=== PATIENT | male | born 1985 | race American Indian/Alaskan Native ===

== ENCOUNTER 2017-08-24 19:21 | Emergency (ER) | payer SELFPAY ==
[2017-08-24] MEDS ORDERED: MOTRIN PO ONE (23:18)
[2017-08-24] MEDS ORDERED: MOTRIN ONE (23:21)
--- NOTE | 2017-08-25 00:01 | XRay Report ---
FINAL REPORT EXAM: XR SPINE LUMBOSACRAL 2-3V HISTORY: fall, c/o midline lumbar pain COMPARISON: None available. FINDINGS: Three views of the lumbar spine obtained. Lumbar vertebral body heights and disc heights are preserved. Pedicles are intact. No spondylolisthesis. IMPRESSION: Normal height and alignment of the lumbar spine.
--- NOTE | 2017-08-25 02:00 | Emergency Department Report ---
ED Back Pain/Injury HPI - General Chief Complaint: Fall Stated Complaint: BACK PAIN Time Seen by Provider: 08/25/17 01:46 Source: patient Limitations: No Limitations - History of Present Illness Initial Comments: 31-year-old male past medical history obesity presents with complaint of over one week of lower back pain status post fall. Patient states he fell while in the shower. Denies any loss of consciousness denies blurred vision denies headache denies nausea denies vomiting denies chest pain or abdominal pain. Primary complaining of lower back pain. Patient is ambulatory without assistance. States he was taking some [id number] Motrin with minimal relief of his pain. Patient denies any saddle paresthesias bladder or bowel incontinence. Denies radiation of pain into his legs. MD Complaint: back pain Onset/Timin -: week(s) Place: home Radiation: none Severity: moderate Severity scale (0 -10): 5 Quality: aching Consistency: constant Improves With: none Worsens With: none Associated Symptoms: denies other symptoms - Related Data Previous Rx's Medication Instructions Recorded Last Taken Type Naproxen 500 mg PO BID PRN #30 tablet 08/25/17 Unknown Rx traMADol [Ultram 50 MG tab] 50 mg PO Q6HR PRN #9 tablet 08/25/17 Unknown Rx Allergies Allergy/AdvReac Type Severity Reaction Status Date / Time Penicillins Allergy Unknown Verified 08/24/17 21:08 ED Review of Systems ROS: Stated complaint: BACK PAIN Other details as noted in HPI Constitutional: denies: chills, fever Eyes: denies: eye pain, eye discharge, vision change ENT: denies: ear pain, throat pain Respiratory: denies: cough, shortness of breath, wheezing Cardiovascular: denies: chest pain, palpitations Endocrine: no symptoms reported Gastrointestinal: denies: abdominal pain, nausea, diarrhea Genitourinary: denies: urgency, dysuria Musculoskeletal: back pain. denies: joint swelling, arthralgia Skin: denies: rash, lesions Neurological: denies: headache, weakness, paresthesias Psychiatric: denies: anxiety, depression Hematological/Lymphatic: denies: easy bleeding, easy bruising ED Past Medical Hx - Past Medical History Hx Asthma: Yes - Surgical History Past Surgical History?: No - Social History Smoking Status: Never Smoker Substance Use Type: Alcohol - Medications Home Medications: Home Medications Medication Instructions Recorded Confirmed Last Taken Type Naproxen 500 mg PO BID PRN #30 tablet 08/25/17 Unknown Rx traMADol [Ultram 50 MG tab] 50 mg PO Q6HR PRN #9 tablet 08/25/17 Unknown Rx ED Physical Exam - General Limitations: No Limitations General appearance: alert, in no apparent distress - Head Head exam: Present: atraumatic, normocephalic - Eye Eye exam: Present: normal appearance, PERRL, EOMI - ENT ENT exam: Present: mucous membranes moist - Neck Neck exam: Present: normal inspection - Respiratory Respiratory exam: Present: normal lung sounds bilaterally. Absent: respiratory distress - Cardiovascular Cardiovascular Exam: Present: regular rate, normal rhythm. Absent: systolic murmur, diastolic murmur, rubs, gallop - GI/Abdominal GI/Abdominal exam: Present: soft, normal bowel sounds - Rectal Rectal exam: Present: deferred - Extremities Exam Extremities exam: Present: normal inspection - Back Exam Back exam: Present: normal inspection, paraspinal tenderness (some lumbar paraspinal tenderness. No cervical thoracic or lumbar midline tenderness.) - Neurological Exam Neurological exam: Present: alert, oriented X3, CN II-XII intact, normal gait - Expanded Neurological Exam Expanded Patient oriented to: Present: person, place, time Cranial nerves: EOM's Intact: Normal, Facial Sensation: Normal Cerebellar function: Finger to Nose: Normal, Heel to [place]: Normal, [place]: Normal Sensory exam: Upper Extremity Light Touch: Normal, Lower Extremity Light Touch: Normal Motor strength exam: RUE: 5, LUE: 5, RLE: 5, LLE: 5 DTR: tricep (R): 3+, tricep (L): 3+, knee (R): 3+, knee (L): 3+ Best Eye Response ([place]): (4) open spontaneously Best Motor Response ([place]): (6) obeys commands Best Verbal Response ([place]): (5) oriented Cricket Total: 15 - Psychiatric Psychiatric exam: Present: normal affect, normal mood - Skin Skin exam: Present: warm, dry, intact, normal color. Absent: rash ED Course Vital Signs 08/24/17 08/24/17 20:12 21:02 Temperature 98.9 F 98.9 F Pulse Rate 112 H 110 H Respiratory 18 18 Rate Blood Pressure 142/86 142/86 Blood Pressure 142/86 [Right] O2 Sat by Pulse 97 96 Oximetry ED Medical Decision Making - Medical Decision Making A/P: lower back pain 1-L spine x-ray unremarkable. Patient ambulatory without assistance. 5 out of 5 strength lower extremities. Good rectal tone. No clinical signs of cauda equina. 2-naproxen when necessary, short course tramadol when necessary 3-follow-up with primary care doctor and orthopedics. Critical care attestation.: If time is entered above; I have spent that time in minutes in the direct care of this critically ill patient, excluding procedure time. ED Disposition Clinical Impression: Musculoskeletal pain Lower back pain Qualifiers: Chronicity: acute Back pain laterality: bilateral Sciatica presence: without sciatica Qualified Code(s): M54.5 - Low back pain Disposition: TO HOME OR SELFCARE Is pt being admited?: No Does the pt Need Aspirin: No Condition: Stable Instructions: Low Back Strain (ED), Acute Low Back Pain (ED), Back Pain (ED) Prescriptions: Naproxen 500 mg PO BID PRN #30 tablet PRN Reason: Pain traMADol [Ultram 50 MG tab] 50 mg PO Q6HR PRN #9 tablet PRN Reason: Pain Referrals: [facility] [Provider Group] - 3-5 Days [facility] [Outside] - 3-5 Days [facility] [Outside] - 3-5 Days Forms: Work/School Release Form(ED) Time of Disposition: 01:59
[2017-08-25 02:29] VITALS: BP 110/70
== END 2017-08-25 02:05 | disposition home or self-care (01) ==
LOC: ED 19:21
DX: M54.5 Low back pain (principal); M79.1 Myalgia; J45.909 Unspecified asthma, uncomplicated; Z88.0 Allergy status to penicillin
CPT/HCPCS: 72100; 99283

== ENCOUNTER 2018-05-23 16:35 | Emergency (ER) | payer SELFPAY ==
--- NOTE | 2018-05-23 20:35 | Emergency Department Report ---
ED General Adult HPI - General Chief complaint: Extremity Injury, Upper Stated complaint: WHOLE LEFT SIDE PAIN Time Seen by Provider: 05/23/18 20:25 Source: patient Mode of arrival: Ambulatory Limitations: No Limitations - History of Present Illness Initial comments: 32-year-old -[place] male presents to the emergency room for complaint of right arm and right hip pain 1 week ago. Patient reports that he had fallen 3 months ago and thinks that he is now reinjured himself while lifting a water pill at work. Patient reports these been taken ibuprofen this only been taken 400 mg maybe twice a day. He has a past medical history of asthma currently takes no medications on a daily basis and has a penicillin allergy. Patient does not have a primary care provider. Patient reports that he has most of his pain is on his right side with his hip being painful. Patient reports that he has no limitations. -: week(s) (1) Location: upper extremity (right shoulder), lower extremity (right hip) Radiation: non-radiation Severity scale (0 -10): 9 Quality: aching Consistency: intermittent Worsens with: movement Treatments Prior to Arrival: NSAID (ibuprofen 400 mg) - Related Data Previous Rx's Medication Instructions Recorded Last Taken Type Naproxen 500 mg PO BID PRN #30 tablet 08/25/17 Unknown Rx traMADol [Ultram 50 MG tab] 50 mg PO Q6HR PRN #9 tablet 08/25/17 Unknown Rx Naproxen [Naprosyn] 500 mg PO BID #15 tablet 05/23/18 Unknown Rx hydroCHLOROthiazide [Hctz] 12.5 mg PO QDAY #30 capsule 05/23/18 Unknown Rx Allergies Allergy/AdvReac Type Severity Reaction Status Date / Time Penicillins Allergy Unknown Verified 05/23/18 16:51 ED Review of Systems ROS: Stated complaint: WHOLE LEFT SIDE PAIN Other details as noted in HPI Comment: All other systems reviewed and negative Musculoskeletal: arthralgia (right hip and right shoulder) ED Past Medical Hx - Past Medical History Hx Asthma: Yes - Social History Smoking Status: Never Smoker Substance Use Type: None - Medications Home Medications: Home Medications Medication Instructions Recorded Confirmed Last Taken Type Naproxen 500 mg PO BID PRN #30 tablet 08/25/17 Unknown Rx traMADol [Ultram 50 MG tab] 50 mg PO Q6HR PRN #9 tablet 08/25/17 Unknown Rx Naproxen [Naprosyn] 500 mg PO BID #15 tablet 05/23/18 Unknown Rx hydroCHLOROthiazide [Hctz] 12.5 mg PO QDAY #30 capsule 05/23/18 Unknown Rx ED Physical Exam - General Limitations: No Limitations General appearance: alert, in no apparent distress, obese (morbid) - Head Head exam: Present: atraumatic, normocephalic - Respiratory Respiratory exam: Present: normal lung sounds bilaterally. Absent: respiratory distress - Cardiovascular Cardiovascular Exam: Present: regular rate, normal rhythm. Absent: systolic murmur, diastolic murmur, rubs, gallop - Expanded Upper Extremity Exam Right Shoulder Exam: Present: full ROM, tenderness Upper Arm exam: Present: normal inspection, full ROM. Absent: tenderness Elbow exam: Present: normal inspection, full ROM. Absent: tenderness Forearm Wrist exam: Present: normal inspection, full ROM, ecchymosis. Absent: tenderness Hand Wrist exam: Present: full ROM. Absent: tenderness - Expanded Lower Extremity Exam Right Hip exam: Present: full ROM, tenderness. Absent: swelling Upper Leg exam: Present: normal inspection, full ROM. Absent: tenderness Knee exam: Present: normal inspection, full ROM. Absent: tenderness - Back Exam Back exam: Present: full ROM - Neurological Exam Neurological exam: Present: alert, oriented X3 - Psychiatric Psychiatric exam: Present: normal affect, normal mood - Skin Skin exam: Present: warm, dry, intact, normal color. Absent: rash ED Course Vital Signs 05/23/18 16:51 Temperature 98.8 F Pulse Rate 87 Respiratory 16 Rate Blood Pressure 170/94 O2 Sat by Pulse 98 Oximetry ED Medical Decision Making - Medical Decision Making Patient has been evaluated by this provider in fast track. Patient given Toradol 30 mg IM and prednisone 40 mg by mouth Discussed patient I would discharge him on naproxen 500 mg twice a day. Will discharge patient on hydrochlorothiazide 12.5 mg for elevated blood pressure. I will refer patient to a primary care provider for elevated blood pressure. Patient verbalized understanding. Critical care attestation.: If time is entered above; I have spent that time in minutes in the direct care of this critically ill patient, excluding procedure time. ED Disposition Clinical Impression: Elevated blood pressure reading Right shoulder pain Qualifiers: Chronicity: acute Qualified Code(s): M25.511 - Pain in right shoulder Strain of right hip Qualifiers: Encounter type: initial encounter Qualified Code(s): S76.011A - Strain of muscle, fascia and tendon of right hip, initial encounter Disposition: - TO HOME OR SELFCARE Is pt being admited?: No Does the pt Need Aspirin: No Condition: Stable Instructions: DASH Eating Plan (ED), Low Sodium Diet (ED) Additional Instructions: Take pain medication as prescribed. Take blood pressure medication daily. Please follow-up with the primary care provider I have listed several below for your convenience. Prescriptions: hydroCHLOROthiazide [Hctz] 12.5 mg PO QDAY #30 capsule Naproxen [Naprosyn] 500 mg PO BID #15 tablet Referrals: PRIMARY CARE, [Primary Care Provider] - 3-5 Days SIRISHA DUMONT MD [Staff Physician] - 3-5 Days BERNA CORRAL MD [Staff Physician] - 3-[address] [facility] [Provider Group] - 3-5 Days Forms: Work/School Release Form(ED), Accompanied Note
[2018-05-23] MEDS ORDERED: DELTASONE PO ONE (20:48)
[2018-05-23] MEDS ORDERED: TORADOL IM ONE (20:48)
[2018-05-23 21:21] VITALS: BP 156/96
== END 2018-05-23 21:19 | disposition home or self-care (01) ==
LOC: ED 16:35
DX: S76.011A Strain of muscle, fascia and tendon of right hip, initial encounter (principal); M25.511 Pain in right shoulder; R03.0 Elevated blood-pressure reading, without diagnosis of hypertension; J45.909 Unspecified asthma, uncomplicated; Z88.0 Allergy status to penicillin; Z79.899 Other long term (current) drug therapy; X50.0XXA Overexertion from strenuous movement or load, initial encounter; Y93.89 Activity, other specified; Y99.0 Civilian activity done for income or pay; Y92.69 Other specified industrial and construction area as the place of occurrence of the external cause
CPT/HCPCS: 96372; 99282; J1885; J7512